=== PATIENT | female | born 1980 | race Caucasian/White ===

== ENCOUNTER 2019-10-05 18:05 | Emergency (ER) | payer MEDICARE, MEDICAID ==
[2019-10-05 18:35] LABS: #Eosinphils 0.1 thou/uL (0.0-0.7); #Lymphocytes 1.3 thou/uL (1.20-3.40); #Monocytes 1.2 thou/uL (0.11-0.59); #Neutrophils 10.9 thou/uL (1.40-6.50); %Basophils 0.3 % (0.0-1.0); %Eosinophils 0.4 % (0.0-10.0); %Lymphocytes 9.3 % (21.0-51.0); Hemoglobin 14.1 g/dL (12.0-16.0); Mean Corpuscular HGB CONC 35.5 g/dL (32.0-36.0); Mean Corpuscular Hemoglobin 32.1 pg (27.0-31.0); Mean Corpuscular Volume 90.6 fL (78.0-98.0); Platelet Count 332 thou/uL (130-400); RBC Distribution Width 11.7 % (11.5-14.5); Red Blood Cell (RBC) Count 4.38 mill/uL (4.20-5.40); White Blood Cell (WBC) Count 13.4 thou/uL (4.8-10.8)
[2019-10-05 18:44] LABS: BHCG - Serum Negative (NEGATIVE); Pregs Control Background? CLEAR/WHITE (CLR/WHITE); Pregs Control Bar Appear? YES (CONTROL BAR)
[2019-10-05 18:53] LABS: Bacteria/HPF 4+ HPF (None Seen); Bilirubin Negative (Negative); Blood, Urine 1+ (Negative); Clarity Turbid (Clear); Glucose, Urine (Dipstick) 50 mg/dL (Negative); Leukocyte 500 Leu/uL (Negative); Nitrite 2+ (Negative); Protein, Urine (Dipstick) 30 mg/dL (Neg-Trace); Squamous Epithelial 0-3 HPF (0-3); Urobilinogen Normal mg/dL (Less than 2); WBC/HPF Greater than 50 HPF (0-3)
[2019-10-05 18:59] LABS: ALT (SGPT) 54 U/L (8-55); AST (SGOT) 29 U/L (5-34); Albumin 4.2 g/dL (3.5-5.0); Alkaline Phosphatase 89 U/L (40-110); Anion Gap 11 mmol/L (10-20); BUN (Urea Nitrogen) 11 mg/dL (7.0-18.7); Calc. Creatinine Clearance 0 mL/min (70-130); Calcium 9.5 mg/dL (7.8-10.44); Carbon Dioxide 27 mmol/L (22-29); Chloride 104 mmol/L (98-107); Estimated GFR-MDRD 55; Globulin 3.1 g/dL (2.4-3.5); Glucose 110 mg/dL (70-105); Potassium 4.1 mmol/L (3.5-5.1); Protein, Total 7.3 g/dL (6.0-8.3); Sodium 138 mmol/L (136-145)
[2019-10-05] MEDS ORDERED: Morphine 4 MG/ML VIAL ONE ×2 (20:03→21:14)
[2019-10-05] MEDS ORDERED: cefTRIAXone\\ROCEPHIN 1 GM VIAL ONE (20:04)
[2019-10-05] MEDS ORDERED: Ondansetron PF 4 MG/2 ML Vial ONE (20:04)
== END 2019-10-05 21:21 | disposition home or self-care (01) ==
LOC: ERS 18:05
DX: N10 Acute pyelonephritis (principal); F43.10 Post-traumatic stress disorder, unspecified; F41.9 Anxiety disorder, unspecified; F17.210 Nicotine dependence, cigarettes, uncomplicated; F31.9 Bipolar disorder, unspecified; Z87.442 Personal history of urinary calculi
CPT/HCPCS: 36415; 80053; 81003; 81015; 83605; 84703; 85025; 96365; 96375; 96376; J0696; J2270; J2405

== ENCOUNTER 2019-10-11 18:46 | Emergency (ER) | payer MEDICARE, MEDICAID ==
[2019-10-11] MEDS ORDERED: clonazePAM 1 MG TAB ONE (19:43)
[2019-10-11] MEDS ORDERED: Propranolol 40 MG TAB PO SCH (20:15)
--- NOTE | 2019-10-17 11:01 | EKG ---
Test Reason : WEAKNESS Blood Pressure : / mmHG Vent. Rate : 128 BPM Atrial Rate : 128 BPM P-R Int : 152 ms QRS Dur : 076 ms QT Int : 296 ms P-R-T Axes : 063 057 012 degrees QTc Int : 432 ms Sinus tachycardia Possible Left atrial enlargement Borderline ECG Confirmed by PAYTON IGLESIAS DO ([id number]), publication editor JORDAN BARRAGAN ([id number]) on 10/17/2019 11:01:31 AM Referred By: Confirmed By:PAYTON IGLESIAS DO
== END 2019-10-11 22:24 | disposition home or self-care (01) ==
LOC: ERS 18:46
DX: F41.9 Anxiety disorder, unspecified (principal); F31.9 Bipolar disorder, unspecified; F17.210 Nicotine dependence, cigarettes, uncomplicated; Z79.899 Other long term (current) drug therapy
CPT/HCPCS: 93005

== ENCOUNTER 2020-01-02 10:55 | Emergency (ER) | payer MEDICARE, MEDICAID ==
[2020-01-02] MEDS ORDERED: clonazePAM 1 MG TAB ONE (11:41)
[2020-01-02] MEDS ORDERED: Ondansetron ODT 4 MG TAB ONE (11:44)
== END 2020-01-02 12:05 | disposition home or self-care (01) ==
LOC: ERS 10:55
DX: F13.239 Sedative, hypnotic or anxiolytic dependence with withdrawal, unspecified (principal); R11.2 Nausea with vomiting, unspecified; F31.9 Bipolar disorder, unspecified; F41.9 Anxiety disorder, unspecified; F43.10 Post-traumatic stress disorder, unspecified; F17.210 Nicotine dependence, cigarettes, uncomplicated
CPT/HCPCS: 99283; Q0162

== ENCOUNTER 2020-04-19 14:41 | Outpatient (CLI) | payer MEDICARE, MEDICAID ==
--- NOTE | 2020-04-19 15:50 | MRI ---
EXAM: MRI left knee PROVIDED CLINICAL HISTORY: Pain COMPARISON: None FINDINGS: The anterior cruciate ligament, posterior cruciate ligament, medial collateral ligament and lateral c ollateral ligamentous complex demonstrate an intact MR appearance, as does the extensor mechanism. The medial and lateral menisci demonstrate no evidence for tear. No focal articular cartilage defect is apparent. The amount of fluid within the knee joint appears physiologic. There is a small Trotter's cyst. No focal concerning regional marrow or muscular signal abnormality apparent. IMPRESSION: No evidence for internal derangement.
== END 2020-04-19 14:42 | disposition home or self-care (01) ==
LOC: BICMRI 14:41
PROVIDERS: ATTEND Obstetrics & Gynecology
DX: S89.92XA Unspecified injury of left lower leg, initial encounter (principal)

== ENCOUNTER 2020-07-15 21:01 | Observation (INO) | payer MEDICARE, MEDICAID ==
[2020-07-15] MEDS ORDERED: Ondansetron PF 4 MG/2 ML Vial ONE (21:44)
[2020-07-15] MEDS ORDERED: Ketorolac Tromethamine 30 MG/ML VIAL ONE (21:44)
[2020-07-15 22:07] LABS: #Eosinphils 0.1 thou/uL (0.0-0.7); #Lymphocytes 1.7 thou/uL (1.20-3.40); #Monocytes 0.8 thou/uL (0.11-0.59); #Neutrophils 6.5 thou/uL (1.40-6.50); %Basophils 0.3 % (0.0-1.0); %Eosinophils 0.8 % (0.0-10.0); %Lymphocytes 18.9 % (21.0-51.0); %Monocytes 9.1 % (0.0-10.0); %Neutrophils 70.9 % (42.0-75.0); Hemoglobin 12.5 g/dL (12.0-16.0); Mean Corpuscular HGB CONC 31.9 g/dL (32.0-36.0); Mean Corpuscular Volume 90.8 fL (78.0-98.0); Mean Platelet Volume 6.7 fL (7.4-10.4); Platelet Count 348 thou/uL (130-400); RBC Distribution Width 11.5 % (11.5-14.5); White Blood Cell (WBC) Count 9.2 thou/uL (4.8-10.8)
[2020-07-15 22:13] LABS: BHCG - Serum Negative (NEGATIVE); Pregs Control Background? CLEAR/WHITE (CLR/WHITE); Pregs Control Bar Appear? YES (CONTROL BAR)
[2020-07-15 22:17] LABS: Bilirubin Negative (Negative); Blood, Urine Negative (Negative); Clarity Clear (Clear); Glucose, Urine (Dipstick) Normal (Negative); Ketone, Urine Negative (Negative); Leukocyte 500 Leu/uL (Negative); Nitrite 1+ (Negative); Protein, Urine (Dipstick) 20 mg/dL (Neg-Trace); Renal Epithelial 0-3 HPF (None Seen); Specific Gravity, Urine 1.009 (1.002-1.036); Squamous Epithelial 0-3 HPF (0-3); Urobilinogen Normal mg/dL (Less than 2); WBC/HPF Greater than 50 HPF (0-3)
[2020-07-15] MEDS ORDERED: Morphine 4 MG/ML VIAL ONE (22:21)
[2020-07-15 22:23] LABS: Bacteria/HPF 1+ HPF (None Seen)
[2020-07-15 22:28] LABS: ALT (SGPT) 69 U/L (8-55); AST (SGOT) 35 U/L (5-34); Albumin 4.1 g/dL (3.5-5.0); Alkaline Phosphatase 85 U/L (40-110); Anion Gap 13 mmol/L (10-20); BUN (Urea Nitrogen) 12 mg/dL (7.0-18.7); Bilirubin, Total 1.4 mg/dL (0.2-1.2); Calc. Creatinine Clearance 0 mL/min (70-130); Calcium 8.8 mg/dL (7.8-10.44); Carbon Dioxide 27 mmol/L (22-29); Chloride 104 mmol/L (98-107); Glucose 96 mg/dL (70-105); Lipase 9 U/L (8-78); Potassium 3.6 mmol/L (3.5-5.1); Protein, Total 7.1 g/dL (6.0-8.3); Sodium 140 mmol/L (136-145)
[2020-07-15] MEDS ORDERED: cefTRIAXone\\ROCEPHIN 1 GM VIAL ONE (23:09)
[2020-07-16] MEDS ORDERED: Morphine 4 MG/ML VIAL ONE (00:28)
[2020-07-16] MEDS ORDERED: Acetaminophen 325 MG TAB PO PRN (01:30)
[2020-07-16] MEDS ORDERED: Lactated Ringer's 1,000 ML IV SCH (01:30)
[2020-07-16] MEDS ORDERED: Morphine 2 MG/ML VIAL SLOW IVP PRN (01:32)
[2020-07-16] MEDS ORDERED: Naloxone HCl 0.4 mg/ml Vial IV PRN (01:38)
[2020-07-16 01:44] VITALS: BMI 26.0
[2020-07-16] MEDS: Promethazine HCl 25 MG/ML VIAL IM PRN ×2 (02:18→06:50)
[2020-07-16] MEDS: Morphine 4 MG/ML VIAL SLOW IVP PRN ×2 (02:18→06:49)
[2020-07-16] MEDS: Ondansetron PF 4 MG/2 ML Vial IVP PRN ×3 (03:32→15:15)
[2020-07-16 04:56] LABS: #Eosinphils 0.1 thou/uL (0.0-0.7); #Lymphocytes 2.1 thou/uL (1.20-3.40); #Monocytes 0.9 thou/uL (0.11-0.59); %Basophils 0.5 % (0.0-1.0); %Lymphocytes 29.4 % (21.0-51.0); %Monocytes 12.7 % (0.0-10.0); %Neutrophils 56.4 % (42.0-75.0); Hemoglobin 11.1 g/dL (12.0-16.0); Mean Corpuscular HGB CONC 32.7 g/dL (32.0-36.0); Mean Corpuscular Hemoglobin 29.7 pg (27.0-31.0); Mean Platelet Volume 6.8 fL (7.4-10.4); Platelet Count 278 thou/uL (130-400); RBC Distribution Width 11.3 % (11.5-14.5); Red Blood Cell (RBC) Count 3.72 mill/uL (4.20-5.40); White Blood Cell (WBC) Count 7.1 thou/uL (4.8-10.8)
[2020-07-16 05:21] LABS: ALT (SGPT) 56 U/L (8-55); AST (SGOT) 29 U/L (5-34); Albumin 3.4 g/dL (3.5-5.0); Alkaline Phosphatase 71 U/L (40-110); Anion Gap 14 mmol/L (10-20); BUN (Urea Nitrogen) 11 mg/dL (7.0-18.7); Bilirubin, Total 1.4 mg/dL (0.2-1.2); Calc. Creatinine Clearance 120 mL/min (70-130); Calcium 8.2 mg/dL (7.8-10.44); Carbon Dioxide 22 mmol/L (22-29); Chloride 109 mmol/L (98-107); Globulin 2.6 g/dL (2.4-3.5); Glucose 93 mg/dL (70-105); Potassium 3.6 mmol/L (3.5-5.1); Sodium 141 mmol/L (136-145)
[2020-07-16] MEDS: Ketorolac Tromethamine 30 MG/ML VIAL IVP SCH ×3 (06:42→16:39)
[2020-07-16] MEDS ORDERED: Morphine 4 MG/ML VIAL SLOW IVP PRN (08:52)
[2020-07-16] MEDS ORDERED: Enoxaparin Sodium 40 MG/0.4 ML SYRINGE SC SCH (09:00)
[2020-07-16] MEDS ORDERED: Vortioxetine Hydrobromide [Trintellix] 20 MG Tablet PO SCH (09:00)
[2020-07-16] MEDS: Morphine 2 MG/ML VIAL SLOW IVP PRN ×2 (09:09→16:40)
[2020-07-16 09:11] LABS: SARS-CoV-2 PCR by NAA Not Detected (NotDetected)
[2020-07-16] MEDS ORDERED: Promethazine HCl 25 MG/ML VIAL IM PRN (10:39)
[2020-07-16] MEDS: clonazePAM 1 MG TAB PO SCH ×2 (11:26→15:15)
[2020-07-16 16:09] VITALS: BP 94/63; TEMP 98.5
[2020-07-16] MEDS ORDERED: cefTRIAXone\\ROCEPHIN 1 GM in Sodium Chloride 0.9% 100 ML IVPB SCH (23:30)
== END 2020-07-16 17:49 | disposition home or self-care (01) ==
LOC: ERS 21:01 → SURG B 07-16 00:29
PROVIDERS: ADMIT Student in an Organized Health Care Education/Training Program; ATTEND Student in an Organized Health Care Education/Training Program
DX: N20.0 Calculus of kidney (principal); N39.0 Urinary tract infection, site not specified; F17.210 Nicotine dependence, cigarettes, uncomplicated; G89.29 Other chronic pain; M53.3 Sacrococcygeal disorders, not elsewhere classified; B18.2 Chronic viral hepatitis C; Z79.891 Long term (current) use of opiate analgesic; Z79.899 Other long term (current) drug therapy; Z20.822 Contact with and (suspected) exposure to COVID-19
CPT/HCPCS: 74176; 80053 ×2; 83690; 84145; 84703; 85025 ×2; 85652; 86140; 87077; 87086; 87186; 87205; 96365; 96372; 96375 ×2; 96376 ×2; 99285; G0378 ×2; J2270; U0003; U0005; 36415; 81003; 81015; 87635; J0696; J1650; J1885; J2405; J2550

== ENCOUNTER 2020-12-23 15:32 | Outpatient (CLI) | payer MEDICARE, MEDICAID | END 2020-12-23 15:33 | disposition home or self-care (01) | LOC: BICCT 15:32 | PROVIDERS: ATTEND Urology | DX: N20.0 Calculus of kidney (principal) | CPT/HCPCS: 74176 ==

== ENCOUNTER 2020-12-29 | Day surgery (SDC) | payer MEDICARE, MEDICAID | END 2020-12-29 16:05 | disposition home or self-care (01) | PROC: 0T768DZ Dilation of Right Ureter with Intraluminal Device, Via Natural or Artificial Opening Endoscopic (ICD-10-PCS; principal; 2020-12-29) ==

== ENCOUNTER 2021-06-10 13:30 | Emergency (ER) | payer MEDICARE, MEDICAID ==
[2021-06-10] MEDS ORDERED: Ketorolac Tromethamine 30 MG/ML VIAL ONE (13:48)
[2021-06-10] MEDS ORDERED: HYDROcodone/Acetaminophen 10/325 mg Tablet ONE (13:56)
== END 2021-06-10 14:31 | disposition home or self-care (01) ==
LOC: ERS 13:30
DX: M79.641 Pain in right hand (principal); F17.210 Nicotine dependence, cigarettes, uncomplicated; F17.290 Nicotine dependence, other tobacco product, uncomplicated
CPT/HCPCS: 99283; J1885